=== PATIENT | female | born 1960 | race Caucasian/White ===

== ENCOUNTER → 2016-07-05 | Outpatient (CLI) | payer OTHER ==
[~2016-07-05] MED LIST: CIPR5SUS PO; DICL50TAB FT; DOCU10CA PO; DONETAB6 PO; LISI-542 PO; PERCOCET PO; TYLE325T5 PO; XANA0.5T PO; ZANA4TAB PO
--- NOTE | 2016-07-05 09:49 | REP ---
Clinical: Interstitial cystitis. Technique: Real time hunt scale and color evaluation of the bladder using curved array transducer. Transvaginal ultrasound examination of the urethra. Findings: The bladder is normal. Specifically, there is no wall thickening or mass lesion and bilateral ureteral jets are identified. The urethra is normal in appearance by ultrasound. Prevoid volume equals 113 ml. Postvoid volume equals 8 ml. Postvoid residual equals 7%. Impression: Normal sonographic appearance of the bladder and urethra. Signed by Lambert Loza MD 07/05/2016 09:40 A
== END ==
LOC: M RAD 08:47
PROVIDERS: ATTEND Specialist
DX: N36.8 Other specified disorders of urethra (principal); N30.10 Interstitial cystitis (chronic) without hematuria

== ENCOUNTER 2016-09-03 15:26 | Emergency (ER) | payer OTHER ==
[2016-09-03 15:27] VITALS: BP 157/86
[2016-09-03] MEDS ORDERED: NAME5TAB13 PO (15:38)
[2016-09-03] MEDS ORDERED: MELO15TA4 PO (15:38)
[2016-09-03] MEDS ORDERED: OXYB5TA PO (15:38)
[2016-09-03] MEDS ORDERED: PYRI200T5 PO (15:57)
[2016-09-03] MEDS ORDERED: PHENAZOPYRIDINE 100 MG TAB PO ONE (16:00)
[2016-09-03] MEDS ORDERED: ACETAMINOPHEN 325 MG TAB PO ONE (16:00)
== END 2016-09-03 16:00 | disposition home or self-care (01) ==
LOC: M ED 15:39
DX: N32.9 Bladder disorder, unspecified (principal); I25.10 Atherosclerotic heart disease of native coronary artery without angina pectoris; Z79.899 Other long term (current) drug therapy

== ENCOUNTER → 2016-09-27 | Outpatient (REF) | payer OTHER ==
[~2016-09-27] MED LIST changes: +MELO15TA4 PO; +NAME5TAB13 PO; +OXYB5TA PO; +PYRI200T5 PO
[2016-09-27 13:51] LABS: BACTERIA, URINE SMALL AMOUNT; HYALINE CAST, URINE NONE SEEN /lpf (0-1); MICROSCOPIC EXAM PERFORMED; RBC, URINE 0-1 /hpf (0-3); SQUAMOUS EPITHELIAL CELL URINE SMALL AMOUNT /hpf (SMALL AMT)
== END ==
LOC: M SMT 13:19
PROVIDERS: ATTEND Specialist
DX: R35.0 Frequency of micturition (principal)

== ENCOUNTER → 2016-11-19 | Outpatient (REF) | payer OTHER ==
[~2016-11-19] MED LIST changes: -OXYB5TA PO; +OXYB5TAB10 PO; +PYRI1TAB5 PO; -PYRI200T5 PO
== END ==
LOC: M SMT 13:31
PROVIDERS: ATTEND Nurse Practitioner Women's Health
DX: R30.0 Dysuria (principal)

== ENCOUNTER → 2017-04-20 | Outpatient (CLI) | payer OTHER ==
[2017-04-20 14:16] LABS: ALBUMIN 3.2 GM/DL (3.2-5.2); ALBUMIN/GLOBULIN RATIO 0.89 (1.00-1.93); ALKALINE PHOSPHATASE 94 U/L (45-117); ALT/SGPT 21 U/L (12-78); ANION GAP 6 MEQ/L (8-16); AST/SGOT 9 U/L (7-37); BILIRUBIN,TOTAL 0.3 MG/DL (0.2-1.0); BLOOD UREA NITROGEN 9 MG/DL (7-18); CALCIUM LEVEL 8.6 MG/DL (8.5-10.1); CARBON DIOXIDE LEVEL 32 MEQ/L (21-32); CHLORIDE LEVEL 106 MEQ/L (98-107); CHOLESTEROL LEVEL 188 MG/DL (<200); CREATININE FOR GFR 0.69 MG/DL (0.55-1.02); GLOMERULAR FILTRATION RATE > 60.0 (>51); GLUCOSE, FASTING 89 MG/DL (70-105); POTASSIUM SERUM 4.5 MEQ/L (3.5-5.1); SODIUM LEVEL 144 MEQ/L (136-145); TOTAL PROTEIN 6.8 GM/DL (6.4-8.2); TRIGLYCERIDES LEVEL 92 MG/DL (<150)
== END ==
LOC: M WUC 08:51
PROVIDERS: ATTEND Family Medicine
DX: Z00.01 Encounter for general adult medical examination with abnormal findings (principal)

== ENCOUNTER → 2017-08-12 | Outpatient (REF) | payer OTHER ==
[2017-08-12 14:15] LABS: APPEARANCE, URINE CLEAR (CLEAR); BACTERIA, URINE AUTO NEGATIVE (NEGATIVE); BILIRUBIN, URINE AUTO NEGATIVE (NEGATIVE); BLOOD, URINE BLOOD 1+ (NEGATIVE); COLOR, URINE AMBER (YELLOW); GLUCOSE, URINE (UA) AUTO NEGATIVE (NEGATIVE); KETONE, URINE AUTO NEGATIVE (NEGATIVE); LEUKOCYTE ESTERASE, URINE AUTO NEGATIVE (NEGATIVE); MUCUS, URINE SMALL (NEGATIVE); NITRITE, URINE AUTO NEGATIVE (NEGATIVE); PROTEIN, URINE AUTO NEGATIVE (NEGATIVE); RBC, URINE AUTO 11 /HPF (0-3); SPECIFIC GRAVITY URINE AUTO 1.017 (1.002-1.035); SQUAMOUS EPITHELIAL CELL UR AU 1 /HPF (0-6); UROBILINOGEN, URINE AUTO 0.2 mg/dL (0.0-2.0); WBC, URINE AUTO 3 /HPF (0-3)
== END ==
LOC: M SMT 13:16
DX: R30.0 Dysuria (principal)

== ENCOUNTER → 2017-09-08 | Outpatient (CLI) | payer OTHER ==
[2017-09-08 17:35] LABS: ALBUMIN 3.4 GM/DL (3.2-5.2); ALBUMIN/GLOBULIN RATIO 0.97 (1.00-1.93); ALKALINE PHOSPHATASE 98 U/L (45-117); ALT/SGPT 22 U/L (12-78); ANION GAP 6 MEQ/L (8-16); AST/SGOT 11 U/L (7-37); BILIRUBIN,TOTAL 0.3 MG/DL (0.2-1.0); BLOOD UREA NITROGEN 10 MG/DL (7-18); CALCIUM LEVEL 8.8 MG/DL (8.5-10.1); CARBON DIOXIDE LEVEL 29 MEQ/L (21-32); CHLORIDE LEVEL 105 MEQ/L (98-107); CHOLESTEROL LEVEL 176 MG/DL (<200); CHOLESTEROL RISK RATIO 4.292 (<5); CREATININE FOR GFR 0.76 MG/DL (0.55-1.30); GLOMERULAR FILTRATION RATE > 60.0 (>51); GLUCOSE, FASTING 72 MG/DL (70-100); HDL CHOLESTEROL 41 MG/DL (>40); LDL CHOLESTEROL 118.6 MG/DL (<100); MAGNESIUM LEVEL 2.2 MG/DL (1.8-2.4); NON-HDL-C 135 MG/DL; POTASSIUM SERUM 4.4 MEQ/L (3.5-5.1); SODIUM LEVEL 140 MEQ/L (136-145); TOTAL PROTEIN 6.9 GM/DL (6.4-8.2); TRIGLYCERIDES LEVEL 82 MG/DL (<150)
== END ==
LOC: M WUC 10:39
DX: R25.2 Cramp and spasm (principal); I10 Essential (primary) hypertension
CPT/HCPCS: 83735

== ENCOUNTER → 2017-11-16 | Outpatient (REF) | payer OTHER ==
[2017-11-16 17:48] LABS: APPEARANCE, URINE HAZY (CLEAR); BACTERIA, URINE AUTO 2+ (NEGATIVE); BILIRUBIN, URINE AUTO NEGATIVE (NEGATIVE); BLOOD, URINE BLOOD 1+ (NEGATIVE); COLOR, URINE YELLOW (YELLOW); GLUCOSE, URINE (UA) AUTO NEGATIVE (NEGATIVE); KETONE, URINE AUTO NEGATIVE (NEGATIVE); LEUKOCYTE ESTERASE, URINE AUTO 1+ (NEGATIVE); MUCUS, URINE SMALL (NEGATIVE); NITRITE, URINE AUTO NEGATIVE (NEGATIVE); PROTEIN, URINE AUTO NEGATIVE (NEGATIVE); RBC, URINE AUTO 1 /HPF (0-3); SPECIFIC GRAVITY URINE AUTO 1.015 (1.002-1.035); SQUAMOUS EPITHELIAL CELL UR AU 3 /HPF (0-6); UROBILINOGEN, URINE AUTO 0.2 mg/dL (0.0-2.0); WBC, URINE AUTO 11 /HPF (0-3)
== END ==
LOC: M SMT 16:44
DX: R30.0 Dysuria (principal)
CPT/HCPCS: 81001

== ENCOUNTER → 2017-12-21 | Outpatient (REF) | payer OTHER | LOC: M SFHCCLAY 14:38 | DX: N39.0 Urinary tract infection, site not specified (principal) ==

== ENCOUNTER → 2017-12-22 | Outpatient (REF) | payer OTHER | LOC: M SFHCPLAZ 11:42 | DX: N39.0 Urinary tract infection, site not specified (principal) | CPT/HCPCS: 87086 ==

== ENCOUNTER → 2018-03-21 | Outpatient (CLI) | payer OTHER | LOC: M PLARAD 14:26 | DX: F03.90 Unspecified dementia, unspecified severity, without behavioral disturbance, psychotic disturbance, mood disturbance, and anxiety (principal) | CPT/HCPCS: 78608 ==

== ENCOUNTER → 2018-05-03 | Outpatient (CLI) | payer MEDICAID | LOC: M CLY 14:55 | DX: M25.774 Osteophyte, right foot (principal); M79.604 Pain in right leg; J40 Bronchitis, not specified as acute or chronic ==

== ENCOUNTER → 2018-09-21 | Outpatient (REF) | payer MEDICAID ==
[~2018-09-21] MED LIST changes: +MELO15TA28 PO; -MELO15TA4 PO
== END ==
LOC: M SMT 13:11
PROVIDERS: ATTEND Nurse Practitioner Women's Health
DX: N39.0 Urinary tract infection, site not specified (principal)

== ENCOUNTER 2018-09-28 20:09 | Emergency (ER) | payer MEDICAID ==
[~2018-09-28] VITALS: Ht 157.5 cm; Wt 99.1 kg
[2018-09-28 22:15] VITALS: BP 182/92
--- NOTE | 2018-09-29 08:20 | REP ---
Left tib-fib series: Four views. History: Trauma. Pain. Swelling. Findings: Four views of the left tibia and fibula show no evidence of fracture or subluxation. There is plantar heel spurring. Impression: No acute bony abnormality. Electronically Signed by David Matute MD 09/29/2018 08:11 A
--- NOTE | 2018-09-29 08:40 | REP ---
Left foot series: Four views. History: Pain and swelling after trauma. Findings: There is a moderate hallux valgus. Mild diffuse osteopenia is noted. There is osteoarthritis at the first MTP and first MTT joints. No fracture is seen. Plantar calcaneal spur is noted. Impression: No traumatic bony abnormality. Osteoarthritic changes. Diffuse osteopenia. Hallux valgus. Electronically Signed by David Matute MD 09/29/2018 02:43 P
== END 2018-09-28 22:18 | disposition home or self-care (01) ==
LOC: M ED 20:09
DX: S93.402A Sprain of unspecified ligament of left ankle, initial encounter (principal); W01.0XXA Fall on same level from slipping, tripping and stumbling without subsequent striking against object, initial encounter; Y92.018 Other place in single-family (private) house as the place of occurrence of the external cause; I10 Essential (primary) hypertension; F03.90 Unspecified dementia, unspecified severity, without behavioral disturbance, psychotic disturbance, mood disturbance, and anxiety; Z79.899 Other long term (current) drug therapy

== ENCOUNTER → 2018-10-12 | Outpatient (REF) | payer MEDICAID ==
[2018-10-12 18:24] LABS: APPEARANCE, URINE MANUAL CLEAR (CLEAR); COLOR, URINE MANUAL ORANGE (YELLOW); GLUCOSE, URINE (UA) MANUAL NEGATIVE (NEGATIVE); KETONE, URINE MANUAL OBSCURED mg/dL (NEGATIVE); PROTEIN, URINE MANUAL OBSCURED mg/dL (NEGATIVE)
[2018-10-12 18:25] LABS: BILIRUBIN, URINE MANUAL OBSCURED (NEGATIVE); BLOOD URINE MANUAL OBSCURED (NEGATIVE); LEUKOCYTE ESTERASE, URINE MAN OBSCURED (NEGATIVE); NITRITE, URINE MANUAL OBSCURED (NEGATIVE); UROBILINOGEN, URINE MANUAL OBSCURED mg/dl (NORMAL)
[2018-10-12 18:33] LABS: BACTERIA, URINE SMALL AMOUNT; HYALINE CAST, URINE NONE SEEN /lpf (0-1); SQUAMOUS EPITHELIAL CELL URINE SMALL AMOUNT /hpf (SMALL AMT); WBC, URINE 0-1 /hpf (0-3)
== END ==
LOC: M SMT 17:22
PROVIDERS: ATTEND Nurse Practitioner Women's Health
DX: R30.0 Dysuria (principal)

== ENCOUNTER → 2019-05-01 | Outpatient (REF) | payer MEDICAID, OTHER ==
[2019-05-01 19:21] LABS: APPEARANCE, URINE MANUAL CLOUDY (CLEAR); COLOR, URINE MANUAL AMBER (YELLOW); GLUCOSE, URINE (UA) MANUAL OBSCURED mg/dL (NEGATIVE); PH,URINE MAN OBSCURED UNITS (5.0 - 7.0); PROTEIN, URINE MANUAL OBSCURED mg/dL (NEGATIVE); SPECIFIC GRAVITY,URINE MANUAL 1.017 (1.002-1.035)
[2019-05-01 19:22] LABS: BILIRUBIN, URINE MANUAL OBSCURED (NEGATIVE); BLOOD URINE MANUAL OBSCURED (NEGATIVE); KETONE, URINE MANUAL OBSCURED mg/dL (NEGATIVE); LEUKOCYTE ESTERASE, URINE MAN OBSCURED (NEGATIVE); NITRITE, URINE MANUAL OBSCURED (NEGATIVE); UROBILINOGEN, URINE MANUAL OBSCURED mg/dl (NORMAL)
[2019-05-01 19:43] LABS: WBC, URINE TNTC /hpf (0-3)
[2019-05-01 19:44] LABS: SQUAMOUS EPITHELIAL CELL URINE LARGE AMOUNT /hpf (SMALL AMT); TRANSITIONAL EPI CELLS, URINE SMALL AMOUNT /hpf
[2019-05-01 19:45] LABS: BACTERIA, URINE LARGE AMOUNT; MUCUS, URINE LARGE AMOUNT (NEGATIVE)
[2019-05-01 19:48] LABS: HYALINE CAST, URINE NONE SEEN /lpf (0-1)
== END ==
LOC: M SMT 17:10
PROVIDERS: ATTEND Nurse Practitioner Women's Health
DX: R30.0 Dysuria (principal)

== ENCOUNTER 2019-05-12 09:16 | Inpatient (IN) | payer OTHER ==
[~2019-05-12] VITALS: Ht 149.9 cm; Wt 91.8 kg
[2019-05-12] MEDS ORDERED: LIDOCAINE 2% 5ML JELLY UROJET TOP ONE (09:45)
[2019-05-12 10:01] LABS: BASO # 0.1 10^3/uL (0.0-0.2); BASO % 0.8 % (0.0-1.0); EOS # 0.4 10^3/uL (0.0-0.5); EOS % 6.7 % (0.0-3.0); HEMATOCRIT 45.2 % (36.0-47.0); HEMOGLOBIN 14.3 g/dl (12.0-15.5); LYMPH # 1.6 10^3/uL (1.5-5.0); LYMPH % 24.6 % (24.0-44.0); MEAN CORPUSCULAR HEMOGLOBIN 31.2 pg (27.0-33.0); MEAN CORPUSCULAR HGB CONC 31.6 g/dl (32.0-36.5); MEAN CORPUSCULAR VOLUME 98.7 fl (80.0-96.0); MONO # 0.4 10^3/uL (0.0-0.8); MONO % 6.5 % (0.0-5.0); NEUTROPHILS % 61.1 % (36.0-66.0); PLATELET COUNT, AUTOMATED 240 10^3/uL (150-450); RED BLOOD COUNT 4.58 10^6/uL (4.00-5.40); WHITE BLOOD COUNT 6.5 10^3/uL (4.0-10.0)
[2019-05-12] MEDS ORDERED: MAGN250T7 PO (10:09)
[2019-05-12] MEDS ORDERED: PENT10CA PO (10:09)
[2019-05-12] MEDS ORDERED: CITA10TA6 PO (10:09)
[2019-05-12] MEDS ORDERED: CYCL10TA PO (10:09)
[2019-05-12] MEDS ORDERED: QUET1TAB7 PO (10:09)
[2019-05-12 11:27] LABS: BLOOD UREA NITROGEN 17 MG/DL (7-18); CALCIUM LEVEL 8.6 MG/DL (8.8-10.2); CARBON DIOXIDE LEVEL 28 MEQ/L (21-32); CHLORIDE LEVEL 105 MEQ/L (98-107); CREATININE FOR GFR 0.89 MG/DL (0.55-1.30); GLOMERULAR FILTRATION RATE > 60.0 (>45); GLUCOSE, FASTING 99 MG/DL (70-100); POTASSIUM SERUM 5.1 MEQ/L (3.5-5.1); SODIUM LEVEL 139 MEQ/L (136-145)
--- NOTE | 2019-05-12 11:44 | REP ---
REASON: Altered mental status. The technique utilized in obtaining the radiograph has magnified the cardiac silhouette and accentuated the interstitial markings. FINDINGS: The superior mediastinal structures are midline. The cardiac silhouette is unremarkable in size, shape, and position. The diaphragmatic surfaces of the lungs are regular, and the costophrenic angles are clear. The pulmonary olmos are clear. The imaged osseous structures are intact. IMPRESSION: There is no acute cardiopulmonary disease. Electronically Signed by Carlos A Huntley DO 05/12/2019 12:16 P
[2019-05-12] MEDS ORDERED: ONDANSETRON 4MG/2ML VIAL (J2405) As Ordered ONE (12:00)
[2019-05-12] MEDS ORDERED: MORPHINE 2 MG/ML 1ML VIAL (J2270) As Ordered ONE (12:00)
[2019-05-12] MEDS ORDERED: ONDANSETRON 4MG/2ML VIAL (J2405) IV STA (12:01)
[2019-05-12] MEDS ORDERED: MORPHINE 2 MG/ML 1ML VIAL (J2270) IV STA (12:01)
--- NOTE | 2019-05-12 12:21 | ECGEPIP ---
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
[2019-05-12] MEDS ORDERED: MORPHINE 4 MG/ML 1ML VIAL/SYRINGE (J2270) IV PRN (12:30)
[2019-05-12] MEDS ORDERED: CYAN100050 PO (12:39)
[2019-05-12] MEDS ORDERED: SULF1TAB93 PO (12:39)
--- NOTE | 2019-05-12 12:53 | REP ---
REASON: Pain after trauma. COMPARISON: 05/03/2018. There is an acute distal fibular fracture with soft tissue swelling. There are chronic changes seen involving the angle which are unchanged from 05/03/2018. There is lateral soft tissue swelling. IMPRESSION:Distal fibular fracture and chronic changes. Electronically Signed by Carlos A Huntley DO 05/12/2019 01:24 P
--- NOTE | 2019-05-12 13:06 | REP ---
REASON: Status-post casting right ankle due to distal fibular fracture. The previously described fracture is obscured by overlying casting material. As best as can be determined by this exam. The alignment appears near anatomical. Electronically Signed by Carlos A Huntley DO 05/12/2019 01:25 P
--- NOTE | 2019-05-12 13:29 | HPEPDOC ---
[facility] Medical History & Physical Date of Admission May 12, 2019 Date of Service: May 12, 2019 Attending Physician: MORRO PURVIS MD History and Physical CHIEF COMPLAINT: unwitnessed fall at home HISTORY OF PRESENT ILLNESS: This is a 58-year-old female with history of early onset dementia and behavioral disturbance who presents after unwitnessed fall at home. History is obtained from ED staff and medical record, as patient does not answer questions appropriately secondary to her dementia. Reportedly, she was found by her significant other after an unknown time of being down. She had urinated on herself, but the patient is known to be incontinent of urine due to her interstitial cystitis. The patient has not been ill recently, and not had sick contacts. She has not complained of any fevers, chills or weight loss recently. She does have chronic dysuria for which she sees urology. Otherwise the patient has no other acute medical issues. In the ED, she underwent ankle x- ray was found to have a fracture of her distal fibula. She was seen by orthopedic surgery who placed a cast on her right lower extremity. Reportedly, her significant other is seeking placement for higher level of care for the patient. She is admitted for coordination of placement at this time. PAST MEDICAL HISTORY: Early-onset dementia with behavioral disturbance Interstitial cystitis, sees Urology Hypertension. Chronic back pain. Memory loss. Possible vit d deficiency. History of Right ankle fx PAST SURGICAL HISTORY: Cystoscopy Colonoscopy SOCIAL HISTORY: Former smoker, quit 15 years ago, smoked for more than 10 years. Lives at home with significant other. Occasional alcohol. FAMILY HISTORY: Noncontributory ALLERGIES: Please see below. REVIEW OF SYSTEMS: Unable to obtain review of systems as patient does not answer questions appropriately secondary to dementia HOME MEDICATIONS: Please see below. PHYSICAL EXAMINATION: VITAL SIGNS: Please see below. GENERAL APPEARANCE: Laying in bed, appears stated age, no acute distress, calm, cooperative, pleasantly demented HEENT: EOMI, PERRLA, neck is supple with no thyromegaly or lymphadenopathy RESPIRATORY: Lungs are clear to auscultation bilaterally with no adventitious breath sounds appreciated CARDIOVASCULAR: no JVD, RRR,no murmurs/rubs/gallops ABDOMEN: Soft, nontender to palpation in all four quadrants, no masses/organomegaly EXTREMITIES: Right ankle swollen NEUROLOGICAL: No obvious focal deficits, unable to do full exam secondary to pain PSYCHIATRIC: Not oriented to person, place or time. Does not answer questions appropriately Skin: No rashes or ulcers. LN: No significant cervical or inguinal lymphadenopathy LABORATORY DATA: See below. IMAGING: CXR: FINDINGS: The superior mediastinal structures are midline. The cardiac silhouette is unremarkable in size, shape, and position. The diaphragmatic surfaces of the lungs are regular, and the costophrenic angles are clear. The pulmonary olmos are clear. The imaged osseous structures are intact. IMPRESSION: There is no acute cardiopulmonary disease. ANKLE XR: There is an acute distal fibular fracture with soft tissue swelling. There are chronic changes seen involving the angle which are unchanged from 05/03/2018. There is lateral soft tissue swelling. MICROBIOLOGY: Please see below. ASSESSMENT: This is a 58 YO F with history of early-onset dementia who presents after unwitnessed fall at home found to have distal fibular fracture. She has been seen by orthopaedic surgery in ED, who has placed a cast. She is admitted as home disposition unsafe at this time. PLAN: 1. Fibular fracture: -Orthopaedics to follow. Appreciate recommendations -Patient has had cast placed in ED. -Morphine for pain management 2. Advanced dementia: -Social service consult in place -Per ED staff, family is actively seeking placement. Appreciate assistance with this -1:1 sitter ordered 3. Interstitial cystitis: -Continue home medication DISPO: pending placement Vital Signs Vital Signs Date Time Temp Pulse Resp B/P (MAP) Pulse Ox O2 Delivery O2 Flow Rate FiO2 05/12/19 12:09 16 05/12/19 09:35 97.7 85 176/81 (112) 100 Room Air Laboratory Data Labs 24H Laboratory Tests 2 05/12/19 09:40: Immature Granulocyte % (Auto) 0.3, Neutrophils (%) (Auto) 61.1, Lymphocytes (%) (Auto) 24.6, Monocytes (%) (Auto) 6.5H, Eosinophils (%) (Auto) 6.7H, Basophils (%) (Auto) 0.8, Neutrophils # (Auto) 4.0, Lymphocytes # (Auto) 1.6, Monocytes # (Auto) 0.4, Eosinophils # (Auto) 0.4, Basophils # (Auto) 0.1, Nucleated Red Blood Cells % (auto) 0.0, Urine Color YELLOW, Urine Appearance HAZY, Urine pH 6.0, Urine Specific [place] 1.017, Urine Protein NEGATIVE, Urine Glucose (UA) NEGATIVE, Urine Ketones NEGATIVE, Urine Blood NEGATIVE, Urine Nitrite NEGATIVE, Urine Bilirubin NEGATIVE, Urine Urobilinogen 0.2, Urine Leukocyte Esterase NEGATIVE, Urine WBC (Auto) 3, Urine RBC (Auto) 4H, Urine Hyaline Casts (Auto) 0, Urine Bacteria (Auto) NEGATIVE, Urine Squamous Epithelial Cells 6, Urine Mucus (Auto) SMALL, Urine Sperm (Auto) 05/12/19 10:45: Anion Gap 6L, Glomerular Filtration Rate > 60.0, Calcium Level 8.6L CBC/BMP Laboratory Tests 05/12/19 09:40 05/12/19 10:45 Home Medications Scheduled Citalopram Hydrobromide (Citalopram HBr) 10 Mg Tablet, 10 MG PO DAILY Cyanocobalamin (Vitamin B-12) (Vitamin B-12) 1,000 Mcg Tablet, 1,000 MCG PO DAILY Cyclobenzaprine HCl (Cyclobenzaprine HCl) 10 Mg Tablet, 10 MG PO QHS Magnesium Oxide (Magnesium) 250 Mg Tablet, 250 MG PO BID Pentosan Polysulfate Sodium (Elmiron) 100 Mg Capsule, 100 MG PO TID Sulfamethoxazole/Trimethoprim (Sulfamethoxazole-Tmp Ds Tablet) 1 Each Tablet, 1 TAB PO BID Allergies Coded Allergies: No Known Allergies (Unverified , 07/20/14) A-FIB/CHADSVASC A-FIB History Current/History of A-Fib/PAF?: No Current PO Anticoag Therapy: No GME ATTESTATION GME ATTESTATION My faculty preceptor for this patient encounter was physically present during the encounter and was fully available. All aspects of the patient interview, examination, medical decision making process, and medical care plan development were reviewed and approved by the faculty preceptor. The faculty preceptor is a segura and concurs with the plan as stated in the body of this note and will attest to such by his/her cosignature. GME ATTESTATION GME ATTESTATION My faculty preceptor for this patient encounter was physically present during the encounter and was fully available. All aspects of the patient interview, examination, medical decision making process, and medical care plan development were reviewed and approved by the faculty preceptor. The faculty preceptor is aware and concurs with the plan as stated in the body of this note and will attest to such by his/her cosignature. ATTENDING NOTE Patient was seen and examined by me this morning with the residents. Agree with the above assessment and plan CONCEPCION CHICAS MD May 12, 2019 12:34 MORRO PURVIS MD May 12, 2019 15:48
[2019-05-12 14:00] VITALS: BP 142/85
[2019-05-12] MEDS: NS 1,000 ML IV SCH (14:21)
[2019-05-12 18:00] VITALS: BP 138/82
[2019-05-12 19:59] VITALS: BP 154/122
[2019-05-12 20:00] VITALS: BP 158/84
[2019-05-12] MEDS: CYCLOBENZAPRINE 10 MG TAB PO SCH (21:10)
[2019-05-12] MEDS: HEPARIN SOD (PORCINE) 5000 UNITS/ML VIAL SC SCH (21:10)
[2019-05-12] MEDS: ACETAMINOPHEN TAB 650MG DOSE (2X325MG) PO PRN (21:11)
[2019-05-13] MEDS: NS 1,000 ML IV SCH (02:24)
[2019-05-13 05:52] LABS: HEMATOCRIT 37.6 % (36.0-47.0); MEAN CORPUSCULAR HEMOGLOBIN 31.3 pg (27.0-33.0); MEAN CORPUSCULAR HGB CONC 32.2 g/dl (32.0-36.5); MEAN CORPUSCULAR VOLUME 97.4 fl (80.0-96.0); PLATELET COUNT, AUTOMATED 213 10^3/uL (150-450); RED BLOOD COUNT 3.86 10^6/uL (4.00-5.40); WHITE BLOOD COUNT 6.4 10^3/uL (4.0-10.0)
[2019-05-13 05:59] LABS: HEMOGLOBIN 12.1 g/dl (12.0-15.5)
[2019-05-13 06:20] LABS: BLOOD UREA NITROGEN 12 MG/DL (7-18); CALCIUM LEVEL 8.2 MG/DL (8.8-10.2); CARBON DIOXIDE LEVEL 26 MEQ/L (21-32); CHLORIDE LEVEL 109 MEQ/L (98-107); CREATININE FOR GFR 0.75 MG/DL (0.55-1.30); GLOMERULAR FILTRATION RATE > 60.0 (>45); GLUCOSE, FASTING 98 MG/DL (70-100); SODIUM LEVEL 141 MEQ/L (136-145)
[2019-05-13 06:26] VITALS: BP 115/70
--- NOTE | 2019-05-13 07:56 | IPNPDOC ---
Text Note Date of Service The patient was seen on 05/13/19. NOTE Patient was seen and examined this morning. Denies any overnight events. PHYSICAL EXAMINATION: GENERAL APPEARANCE: Laying in bed, appears stated age, no acute distress, calm, cooperative, pleasantly demented HEENT: EOMI, PERRLA, neck is supple with no thyromegaly or lymphadenopathy RESPIRATORY: Lungs are clear to auscultation bilaterally with no adventitious breath sounds appreciated CARDIOVASCULAR: no JVD, RRR,no murmurs/rubs/gallops ABDOMEN: Soft, nontender to palpation in all four quadrants, no masses/organomegaly EXTREMITIES: Cast on the right lower extremity NEUROLOGICAL: No obvious focal deficits, unable to do full exam secondary to pain PSYCHIATRIC: Not oriented to person, place or time. Does not answer questions appropriately Skin: No rashes or ulcers. LN: No significant cervical or inguinal lymphadenopathy LABORATORY DATA: See below. ANKLE XR: There is an acute distal fibular fracture with soft tissue swelling. There are chronic changes seen involving the angle which are unchanged from 05/03/2018. There is lateral soft tissue swelling. Assessment and plan This is a 58 YO F with history of early-onset dementia who presents after unwitnessed fall at home , Likely mechanical, as she is having caused dementia found to have distal fibular fracture. She has been seen by orthopaedic surgery in ED, who has placed a cast. She is admitted as home disposition unsafe at this time. 1. Fibular fracture: Orthopaedics to follow. Appreciate recommendations. Patient has had cast placed in ED. Morphine for pain management. Will get vitamin D levels and replace accordingly 2. Advanced dementia: Social service consult in place, family is actively see [facility]. 1:1 sitter as she is high risk of falls 3. 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
[2019-05-13] MEDS: HEPARIN SOD (PORCINE) 5000 UNITS/ML VIAL SC SCH ×2 (08:01→20:16)
[2019-05-13] MEDS: CitaloPRAM (CeleXA) 10 MG TABLET PO SCH (08:01)
[2019-05-13] MEDS: ACETAMINOPHEN TAB 650MG DOSE (2X325MG) PO PRN ×2 (08:01→20:16)
[2019-05-13] MEDS ORDERED: FLUBLOK(EGG FREE)(QUAD)INFLUENZA VACC 0.5ML SYRINGE (90682)18YRS&OLDER IM ONE (09:00)
[2019-05-13 09:20] VITALS: BP 115/70
[2019-05-13 14:00] VITALS: BP 119/76
[2019-05-13 19:58] VITALS: BP 131/74
[2019-05-13] MEDS: CYCLOBENZAPRINE 10 MG TAB PO SCH (20:16)
--- NOTE | 2019-05-13 22:55 | CR ---
DATE OF CONSULTATION: 05/12/2019 CHIEF COMPLAINT: Right ankle pain. The patient presented to the emergency room (ER) after being picked up by the ambulance at home, said she had an unwitnessed fall. Due to the patient's significant past medical history of early onset dementia and behavioral disturbance, we are not able to get a complete detailed history of present illness. The patient reports pain, was unsure how it happened, sharp in nature and at times is made worse with movement and alleviated with rest and pain medication. Denying any other complaints of fevers, chills, nausea or vomiting. PAST MEDICAL HISTORY: 1. Early onset dementia. 2. Interstitial cystitis. 3. Hypertension. 4. Chronic back pain. 5. Memory loss. 6. Vitamin D deficiency. PAST SURGICAL HISTORY: Cystoscopy and colonoscopy. SOCIAL HISTORY: Former smoker, quit 15 years ago. Smoked for 10 years. Lives at home with significant other. ALLERGIES: No known drug allergies. HOME MEDICATIONS: - citalopram - cyclobenzaprine. - magnesium oxide - pentosan - sulfamethoxazole trimethoprim REVIEW OF SYSTEMS: Unable to obtain review of systems due to the patient's mentation. PHYSICAL EXAMINATION: The patient is awake and alert, not oriented, lying in bed comfortably, breathing unlabored on room air. Normocephalic, atraumatic. Bilateral upper extremities: No tenderness to palpation. Full active range of motion of the fingers, wrist and elbow without any pain or discomfort. Skin intact. Radial pulses 2+, regular rate. Moving fingers spontaneously. I am unable to get a detailed motor sensory exam. Bilateral lower extremities: Tenderness to palpation of the right ankle. Significant swelling, otherwise skin is intact. Posterior tibial pulses 2+, regular rate. Wiggles toes. Unable to get a detailed motor sensory exam. IMAGING: X-rays of the right ankle demonstrate a distal fibular medial malleolus fracture, displaced. DIAGNOSIS: 58-year-old female with significant comorbidities including early onset dementia that suffered an unstable right ankle fracture. I discussed with significant others that this fracture is typically unstable. However, given her overall medical comorbidities, it is quite prudent that we attempt nonoperative treatment here. The patient underwent a closed reduction and casting in the emergency room (ER) with repeat films that showed improved alignment. Will make her non-weightbearing with that lower extremity and to elevate for pain control and that she can followup in our office in one week for repeat films. The patient expressed understanding and agreement with that plan. Appreciate medicine management of the patient.
[2019-05-14 06:17] LABS: HEMATOCRIT 37.2 % (36.0-47.0); HEMOGLOBIN 12.1 g/dl (12.0-15.5); MEAN CORPUSCULAR HEMOGLOBIN 31.5 pg (27.0-33.0); MEAN CORPUSCULAR HGB CONC 32.5 g/dl (32.0-36.5); MEAN CORPUSCULAR VOLUME 96.9 fl (80.0-96.0); PLATELET COUNT, AUTOMATED 208 10^3/uL (150-450); RED BLOOD COUNT 3.84 10^6/uL (4.00-5.40); WHITE BLOOD COUNT 5.9 10^3/uL (4.0-10.0)
[2019-05-14 06:22] VITALS: BP 128/72
[2019-05-14 06:45] LABS: BLOOD UREA NITROGEN 8 MG/DL (7-18); CALCIUM LEVEL 8.5 MG/DL (8.8-10.2); CARBON DIOXIDE LEVEL 26 MEQ/L (21-32); CHLORIDE LEVEL 109 MEQ/L (98-107); CREATININE FOR GFR 0.62 MG/DL (0.55-1.30); GLOMERULAR FILTRATION RATE > 60.0 (>45); GLUCOSE, FASTING 94 MG/DL (70-100); POTASSIUM SERUM 3.8 MEQ/L (3.5-5.1); SODIUM LEVEL 142 MEQ/L (136-145)
[2019-05-14] MEDS: HEPARIN SOD (PORCINE) 5000 UNITS/ML VIAL SC SCH ×2 (08:53→20:51)
[2019-05-14] MEDS: CitaloPRAM (CeleXA) 10 MG TABLET PO SCH (08:53)
[2019-05-14] MEDS: PENTOSAN POLYSULFATE SODIUM 100 MG CAP (ELMIRON) PO SCH ×3 (09:00→20:51)
[2019-05-14 09:25] LABS: TOTAL 25(OH) VITAMIN D 20.1 NG/ML (30.0-100.0)
--- NOTE | 2019-05-14 11:03 | IPNPDOC ---
Date Seen The patient was seen on 05/14/19. Progress Note SUBJECTIVE: Patient was seen and examined this morning. No issues or changes overnight. Patient has no complaints this morning. OBJECTIVE: PHYSICAL EXAMINATION: GENERAL APPEARANCE: Laying in bed, appears stated age, no acute distress, calm, cooperative, pleasantly demented HEENT: EOMI, PERRLA, neck is supple with no thyromegaly or lymphadenopathy RESPIRATORY: Lungs are clear to auscultation bilaterally with no adventitious breath sounds appreciated CARDIOVASCULAR: no JVD, RRR,no murmurs/rubs/gallops ABDOMEN: Soft, nontender to palpation in all four quadrants, no masses/organomegaly EXTREMITIES: Cast on the right lower extremity with exposed toes normal in color and patient is able to move them NEUROLOGICAL: No obvious focal deficits, unable to do full exam secondary to pain PSYCHIATRIC: Not oriented to person, place or time. Does not answer questions appropriately Skin: No rashes or ulcers. LN: No significant cervical or inguinal lymphadenopathy LABORATORY DATA: See below. ANKLE XR: There is an acute distal fibular fracture with soft tissue swelling. There are chronic changes seen involving the angle which are unchanged from 05/03/2018. There is lateral soft tissue swelling. Assessment and plan This is a 58 YO F with history of early-onset dementia who presents after unwitnessed fall at home , Likely mechanical, as she is having caused dementia found to have distal fibular fracture. She has been seen by orthopaedic surgery in ED, who has placed a cast. She is admitted as home disposition unsafe at this time. 1. Fibular fracture: Orthopaedics following. Appreciate recommendations. Patient has had cast placed in ED. Morphine for pain management. 2. Advanced dementia: Social service consult in place, family is actively seeking placement. 1:1 sitter as she is high risk of falls 3. 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, on board VS, I&O, 24HKel Vital Signs/I&O Vital Signs Date Time Temp Pulse Resp B/P (MAP) Pulse Ox O2 Delivery O2 Flow Rate FiO2 05/14/19 06:22 98.0 62 16 128/72 (90) 96 Room Air I&O- Last 24 Hours up to 6 AM 05/14/19 06:00 Intake Total 1250 ml Output Total 0 ml Balance 1250 ml Laboratory Data 24H LABS Laboratory Tests 2 05/14/19 05:56: Nucleated Red Blood Cells % (auto) 0.0, Anion Gap 7L, Glomerular Filtration Rate > 60.0, Calcium Level 8.5L CBC/BMP Laboratory Tests 05/14/19 05:56 GME ATTESTATION GME ATTESTATION My faculty preceptor for this patient encounter was physically present during the encounter and was fully available. All aspects of the patient interview, examination, medical decision making process, and medical care plan development were reviewed and approved by the faculty preceptor. The faculty preceptor is aware and concurs with the plan as stated in the body of this note and will attest to such by his/her cosignature. ATTENDING NOTE I have personally evaluated and examined the patient. Discussed with residents/student regarding plan of care and agree with the above assessment and plan. Patient's inquired about mobility and wants to see if patient can be pushed around in wheelchair or work with PT to be out of bed more. CONCEPCION CHICAS MD May 14, 2019 11:03 SERGEY HAIR MD May 14, 2019 16:43
[2019-05-14] MEDS: VITAMIN D 1,000 INTERNATIONAL UNITS TABLET PO SCH (11:51)
[2019-05-14 13:43] VITALS: BP 131/75
[2019-05-14 20:20] VITALS: BP 154/65
[2019-05-14] MEDS: CYCLOBENZAPRINE 10 MG TAB PO SCH (20:51)
[2019-05-14] MEDS: ACETAMINOPHEN TAB 650MG DOSE (2X325MG) PO PRN (23:44)
[2019-05-15 01:00] VITALS: BP 158/87
[2019-05-15 05:20] VITALS: BP 148/81
[2019-05-15] MEDS: ACETAMINOPHEN TAB 650MG DOSE (2X325MG) PO PRN ×2 (06:55→20:09)
[2019-05-15 07:01] LABS: HEMATOCRIT 37.6 % (36.0-47.0); HEMOGLOBIN 12.3 g/dl (12.0-15.5); MEAN CORPUSCULAR HEMOGLOBIN 31.6 pg (27.0-33.0); MEAN CORPUSCULAR HGB CONC 32.7 g/dl (32.0-36.5); MEAN CORPUSCULAR VOLUME 96.7 fl (80.0-96.0); PLATELET COUNT, AUTOMATED 224 10^3/uL (150-450); RED BLOOD COUNT 3.89 10^6/uL (4.00-5.40); WHITE BLOOD COUNT 5.4 10^3/uL (4.0-10.0)
[2019-05-15] MEDS: VITAMIN D 1,000 INTERNATIONAL UNITS TABLET PO SCH (09:27)
[2019-05-15] MEDS: PENTOSAN POLYSULFATE SODIUM 100 MG CAP (ELMIRON) PO SCH ×3 (09:27→20:08)
[2019-05-15] MEDS: CitaloPRAM (CeleXA) 10 MG TABLET PO SCH (09:27)
[2019-05-15] MEDS: HEPARIN SOD (PORCINE) 5000 UNITS/ML VIAL SC SCH ×2 (09:28→20:09)
--- NOTE | 2019-05-15 10:03 | IPNPDOC ---
Date Seen The patient was seen on 05/15/19. Progress Note SUBJECTIVE: Patient was seen and examined this morning. No issues or changes overnight. Patient has no complaints this morning. OBJECTIVE: PHYSICAL EXAMINATION: GENERAL APPEARANCE: Laying in bed, appears stated age, no acute distress, calm, cooperative, pleasantly demented HEENT: EOMI, PERRLA, neck is supple with no thyromegaly or lymphadenopathy RESPIRATORY: Lungs are clear to auscultation bilaterally with no adventitious breath sounds appreciated CARDIOVASCULAR: no JVD, RRR,no murmurs/rubs/gallops ABDOMEN: Soft, nontender to palpation in all four quadrants, no masses/organomegaly EXTREMITIES: Cast on the right lower extremity with exposed toes normal in color and patient is able to move them NEUROLOGICAL: No obvious focal deficits, unable to do full exam secondary to dementia. PSYCHIATRIC: Not oriented to person, place or time. Does not answer questions appropriately Skin: No rashes or ulcers. LN: No significant cervical or inguinal lymphadenopathy LABORATORY DATA: See below. ANKLE XR: There is an acute distal fibular fracture with soft tissue swelling. There are chronic changes seen involving the angle which are unchanged from 05/03/2018. There is lateral soft tissue swelling. Assessment and plan This is a 58 YO F with history of early-onset dementia who presents after unwitnessed fall at home, likely mechanical, found to have distal fibular fracture. She has been seen by orthopaedic surgery in ED who has placed a cast. She is admitted for her family to pursue placement options as home disposition unsafe at this time. 1. Fibular fracture: Orthopaedics following. Appreciate recommendations. Patient has had cast placed in ED. Morphine for pain management. 2. Advanced dementia: Social service consult in place, family is actively seeking placement. 1:1 sitter as she is high risk of falls 3. 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 All aspects of the patient interview, examination, medical decision making process, and medical care plan development were reviewed and approved by the faculty preceptor. The faculty preceptor is aware and concurs with the plan as stated in the body of this note and will attest to such by his/her cosignature. ATTENDING NOTE I have personally evaluated and examined the patient. Discussed with resident/student regarding plan of care and agree with the above assessment and plan. CONCEPCION CHICAS MD May 15, 2019 10:03 SERGEY HAIR MD May 15, 2019 14:23
[2019-05-15 14:57] VITALS: BP 148/75
[2019-05-15] MEDS: CYCLOBENZAPRINE 10 MG TAB PO SCH (20:08)
[2019-05-15 22:00] VITALS: BP 139/66
[2019-05-16 02:00] VITALS: BP 141/66
[2019-05-16] MEDS: ACETAMINOPHEN TAB 650MG DOSE (2X325MG) PO PRN (02:22)
[2019-05-16 06:00] VITALS: BP 140/66
[2019-05-16] MEDS: PENTOSAN POLYSULFATE SODIUM 100 MG CAP (ELMIRON) PO SCH ×3 (09:24→21:22)
[2019-05-16] MEDS: HEPARIN SOD (PORCINE) 5000 UNITS/ML VIAL SC SCH ×2 (09:24→21:22)
[2019-05-16] MEDS: CitaloPRAM (CeleXA) 10 MG TABLET PO SCH (09:24)
[2019-05-16] MEDS: VITAMIN D 1,000 INTERNATIONAL UNITS TABLET PO SCH (09:24)
--- NOTE | 2019-05-16 09:40 | IPNPDOC ---
Date Seen The patient was seen on 05/16/19. Progress Note SUBJECTIVE: No issues or changes overnight. Patient is awaiting placement at this time. OBJECTIVE: PHYSICAL EXAMINATION: GENERAL APPEARANCE: Laying in bed, appears stated age, no acute distress, calm, cooperative, pleasantly demented HEENT: EOMI, PERRLA, neck is supple with no thyromegaly or lymphadenopathy RESPIRATORY: Lungs are clear to auscultation bilaterally with no adventitious breath sounds appreciated CARDIOVASCULAR: no JVD, RRR,no murmurs/rubs/gallops ABDOMEN: Soft, nontender to palpation in all four quadrants, no m asses/organomegaly EXTREMITIES: Cast on the right lower extremity with exposed toes normal in color and patient is able to move them NEUROLOGICAL: No obvious focal deficits, unable to do full exam secondary to dementia. PSYCHIATRIC: Not oriented to person, place or time. Does not answer questions appropriately Skin: No rashes or ulcers. LN: No significant cervical or inguinal lymphadenopathy LABORATORY DATA: See below. ANKLE XR: There is an acute distal fibular fracture with soft tissue swelling. There are chronic changes seen involving the angle which are unchanged from 05/03/2018. There is lateral soft tissue swelling. Assessment and plan This is a 58 YO F with history of early-onset dementia who presents after unwitnessed fall at home, likely mechanical, found to have distal fibular fracture. She has been seen by orthopaedic surgery in ED who has placed a cast. She is admitted for her family to pursue placement options as home disposition unsafe at this time. 1. Fibular fracture: Orthopaedics following. Appreciate recommendations. Patient has had cast placed in ED. Morphine for pain management. 2. Advanced dementia: Social service consult in place, family is actively seeking placement. 1:1 sitter as she is high risk of falls 3. 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 placement framing machine tender and social workers, on board VS, I&O, 24H, Kel Vital Signs/I&O Vital Signs Date Time Temp Pulse Resp B/P (MAP) Pulse Ox O2 Delivery O2 Flow Rate FiO2 05/16/19 06:00 98.0 87 20 140/66 (90) 95 Room Air I&O- Last 24 Hours up to 6 AM 05/16/19 06:00 Intake Total 1520 ml Balance 1520 ml GME ATTESTATION GME ATTESTATION My faculty preceptor for this patient encounter was physically present during the encounter and was fully available. All aspects of the patient interview, examination, medical decision making process, and medical care plan development were reviewed and approved by the faculty preceptor. The faculty preceptor is aware and concurs with the plan as stated in the body of this note and will attest to such by his/her cosignature. ATTENDING NOTE I have personally evaluated and examined the patient. Discussed with resident/student regarding plan of care and agree with the above assessment and plan. CONCEPCION CHICAS MD May 16, 2019 09:40 SERGEY HAIR MD May 16, 2019 10:40
[2019-05-16 14:00] VITALS: BP 149/90
[2019-05-16 18:00] VITALS: BP 139/87
[2019-05-16] MEDS: CYCLOBENZAPRINE 10 MG TAB PO SCH (21:22)
[2019-05-16 21:43] VITALS: BP 128/78
[2019-05-17 05:39] VITALS: BP 152/80
[2019-05-17] MEDS: PENTOSAN POLYSULFATE SODIUM 100 MG CAP (ELMIRON) PO SCH ×3 (08:40→19:58)
[2019-05-17] MEDS: HEPARIN SOD (PORCINE) 5000 UNITS/ML VIAL SC SCH ×2 (08:40→19:58)
[2019-05-17] MEDS: CitaloPRAM (CeleXA) 10 MG TABLET PO SCH (08:40)
[2019-05-17] MEDS: ACETAMINOPHEN TAB 650MG DOSE (2X325MG) PO PRN ×2 (08:41→19:59)
[2019-05-17] MEDS: VITAMIN D 1,000 INTERNATIONAL UNITS TABLET PO SCH (08:41)
--- NOTE | 2019-05-17 10:28 | IPNPDOC ---
Date Seen The patient was seen on 05/17/19. Progress Note SUBJECTIVE: Patient is seen and examined at the bedside this morning while she is eating her breakfast. She has no complaints, although she mostly does not answer questions appropriately. No issues or changes overnight. Patient is awaiting placement at this time. OBJECTIVE: PHYSICAL EXAMINATION: GENERAL APPEARANCE: Laying in bed, appears stated age, no acute distress, calm, cooperative, pleasantly demented HEENT: EOMI, PERRLA, neck is supple with no thyromegaly or lymphadenopathy RESPIRATORY: Lungs are clear to auscultation bilaterally with no adventitious breath sounds appreciated CARDIOVASCULAR: no JVD, RRR,no murmurs/rubs/gallops ABDOMEN: Soft, nontender to palpation in all four quadrants, no masses/organomegaly EXTREMITIES: Cast on the right lower extremity with exposed toes normal in color and patient is able to move them, she does somewhat wince in pain when ankle is pressed NEUROLOGICAL: No obvious focal deficits, unable to do full exam secondary to dementia. PSYCHIATRIC: Not oriented to person, place or time. Does not answer questions appropriately Skin: No rashes or ulcers. LN: No significant cervical or inguinal lymphadenopathy LABORATORY DATA: See below. ANKLE XR: There is an acute distal fibular fracture with soft tissue swelling. There are chronic changes seen involving the angle which are unchanged from 05/03/2018. There is lateral soft tissue swelling. Assessment and plan This is a 58 YO F with history of early-onset dementia who presents after unwitnessed fall at home, likely mechanical, found to have distal fibular fracture. She has been seen by orthopaedic surgery in ED who has placed a cast. She is admitted for her family to pursue placement options as home disposition unsafe at this time. 1. Fibular fracture: Patient has had cast placed in ED. Morphine for pain management, although she has not requested any. She has been getting Tylenol and Flexeril. -Continue PT/OT. Recommend continued rehab after d/c 2. Advanced dementia: Social service consult in place, family is actively seeking placement. Fall precautions 3. 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 placement fur examiner and social workers, on board VS, I&O, 24H, Fishbone Vital Signs/I&O Vital Signs Date Time Temp Pulse Resp B/P (MAP) Pulse Ox O2 Delivery O2 Flow Rate FiO2 05/17/19 05:39 97.6 90 20 152/80 (798) 97 Room Air I&O- Last 24 Hours up to 6 AM 05/17/19 06:00 Intake Total 1920 ml Output Total 1800 ml Balance 120 ml GME ATTESTATION GME ATTESTATION My faculty preceptor for this patient encounter was physically present during the encounter and was fully available. All aspects of the patient interview, examination, medical decision making process, and medical care plan development were reviewed and approved by the faculty preceptor. The faculty preceptor is aware and concurs with the plan as stated in the body of this note and will attest to such by his/her cosignature. ATTENDING NOTE I have personally evaluated and examined the patient. Discussed with resident/student regarding plan of care and agree with the above assessment and plan. CONCEPCION CHICAS MD May 17, 2019 10:28 SERGEY HAIR MD May 17, 2019 10:50
[2019-05-17 14:14] VITALS: BP 153/87
[2019-05-17] MEDS: CYCLOBENZAPRINE 10 MG TAB PO SCH (19:58)
[2019-05-17 20:00] VITALS: BP 155/87
[2019-05-18 06:30] VITALS: BP 154/80
[2019-05-18] MEDS: VITAMIN D 1,000 INTERNATIONAL UNITS TABLET PO SCH (08:03)
[2019-05-18] MEDS: CitaloPRAM (CeleXA) 10 MG TABLET PO SCH (08:03)
[2019-05-18] MEDS: HEPARIN SOD (PORCINE) 5000 UNITS/ML VIAL SC SCH ×2 (08:03→20:25)
[2019-05-18] MEDS: PENTOSAN POLYSULFATE SODIUM 100 MG CAP (ELMIRON) PO SCH ×3 (08:03→20:25)
--- NOTE | 2019-05-18 10:32 | IPNPDOC ---
Date Seen The patient was seen on 05/18/19. Progress Note SUBJECTIVE: Patient is seen and examined at the bedside this morning. She has no complaints, although she mostly does not answer questions appropriately. No issues or changes overnight. Patient is awaiting placement at this time. She has been hypertensive since she has been here. OBJECTIVE: PHYSICAL EXAMINATION: GENERAL APPEARANCE: Laying in bed, appears stated age, no acute distress, calm, cooperative, pleasantly demented HEENT: EOMI, PERRLA, neck is supple with no thyromegaly or lymphadenopathy RESPIRATORY: Lungs are clear to auscultation bilaterally with no adventitious breath sounds appreciated CARDIOVASCULAR: no JVD, RRR, no murmurs/rubs/gallops ABDOMEN: Soft, nontender to palpation in all four quadrants, no masses/organomegaly EXTREMITIES: Cast on the right lower extremity with exposed toes normal in color and patient is able to move them, she does somewhat wince in pain when ankle is pressed NEUROLOGICAL: No obvious focal deficits, unable to do full exam secondary to dementia. PSYCHIATRIC: Not oriented to person, place or time. Does not answer questions appropriately Skin: No rashes or ulcers. LN: No significant cervical or inguinal lymphadenopathy LABORATORY DATA: See below. ANKLE XR (05/12/19): There is an acute distal fibular fracture with soft tissue swelling. There are chronic changes seen involving the angle which are unchanged from 05/03/2018. There is lateral soft tissue swelling. ASSESSMENT: This is a 58 YO F with history of early-onset dementia who presents after unwitnessed fall at home, likely mechanical, found to have distal fibular fracture. She has been seen by orthopaedic surgery in ED who has placed a cast. She is admitted for her family to pursue placement options as home disposition unsafe at this time. PLAN: 1. Fibular fracture: Patient has had cast placed in ED. Morphine for pain management, although she has not requested any. She has been getting Tylenol and Flexeril. -Continue PT/OT. Recommend continued rehab after d/c -Patient will be made ALC status. 2. Advanced dementia: Social service consult in place, family is actively seeking placement. Fall precautions 3. Interstitial cystitis: Continue home medication 4. Hypertension: Pain vs. untreated HTN. Patient looks comfortable, does not appear to be in discomfort although hard to ascertain given mental status. c/w Pain control. Start on Norvasc 5. DISPOSITION: pending placement opener tender and social workers, on board. Possible admission to [facility] on Tuesday or Tuesday. VS, I&O, 24H, Fishbone Vital Signs/I&O Vital Signs Date Time Temp Pulse Resp B/P (MAP) Pulse Ox O2 Delivery O2 Flow Rate FiO2 05/18/19 06:30 98.2 154/80 (104) 05/17/19 20:00 80 20 97 Room Air I&O- Last 24 Hours up to 6 AM 05/18/19 06:00 Intake Total 1020 ml Balance 1020 ml GME ATTESTATION GME ATTESTATION My faculty preceptor for this patient encounter was physically present during the encounter and was fully available. All aspects of the patient interview, examination, medical decision making process, and medical care plan development were reviewed and approved by the faculty preceptor. The faculty preceptor is aware and concurs with the plan as stated in the body of this note and will attest to such by his/her cosignature. ATTENDING NOTE I have personally evaluated and examined the patient. Discussed with resident/student regarding plan of care and agree with the above assessment and plan. CONCEPCION CHICAS MD May 18, 2019 10:32 SERGEY HAIR MD May 18, 2019 10:39
[2019-05-18] MEDS: amLODIPine 5 MG TAB PO SCH (12:26)
[2019-05-18 14:28] VITALS: BP 144/85
[2019-05-18] MEDS: ACETAMINOPHEN TAB 650MG DOSE (2X325MG) PO PRN ×2 (15:13→21:58)
[2019-05-18] MEDS: CYCLOBENZAPRINE 10 MG TAB PO SCH (20:25)
[2019-05-19] MEDS: ACETAMINOPHEN TAB 650MG DOSE (2X325MG) PO PRN ×2 (05:03→18:49)
[2019-05-19 06:00] VITALS: BP 145/66
[2019-05-19] MEDS: CitaloPRAM (CeleXA) 10 MG TABLET PO SCH (08:37)
[2019-05-19] MEDS: PENTOSAN POLYSULFATE SODIUM 100 MG CAP (ELMIRON) PO SCH ×3 (08:37→20:55)
[2019-05-19] MEDS: VITAMIN D 1,000 INTERNATIONAL UNITS TABLET PO SCH (08:37)
[2019-05-19] MEDS: amLODIPine 5 MG TAB PO SCH (08:37)
[2019-05-19] MEDS: HEPARIN SOD (PORCINE) 5000 UNITS/ML VIAL SC SCH ×2 (08:38→20:55)
[2019-05-19] MEDS ORDERED: HEPARIN SOD (PORCINE) 5000 UNITS/ML VIAL SQ SCH (18:30)
[2019-05-19] MEDS: CYCLOBENZAPRINE 10 MG TAB PO SCH (20:55)
[2019-05-20] MEDS: ACETAMINOPHEN TAB 650MG DOSE (2X325MG) PO PRN ×2 (05:22→15:24)
[2019-05-20 06:00] VITALS: BP 138/68
[2019-05-20] MEDS: CitaloPRAM (CeleXA) 10 MG TABLET PO SCH (08:43)
[2019-05-20] MEDS: PENTOSAN POLYSULFATE SODIUM 100 MG CAP (ELMIRON) PO SCH ×3 (08:43→21:33)
[2019-05-20] MEDS: amLODIPine 5 MG TAB PO SCH (08:43)
[2019-05-20] MEDS: VITAMIN D 1,000 INTERNATIONAL UNITS TABLET PO SCH (08:43)
[2019-05-20] MEDS: HEPARIN SOD (PORCINE) 5000 UNITS/ML VIAL SC SCH ×2 (08:44→21:33)
[2019-05-20] MEDS ORDERED: MAG SULF 1GM/100ML (MAG RUN) 1 GM in IV 1 EA IV ONE (18:30)
[2019-05-20] MEDS ORDERED: MAGNESIUM OXIDE 400 MG TAB (MAG-OX) PO ONE (19:00)
[2019-05-20] MEDS ORDERED: MAGNESIUM OXIDE 400 MG TAB (MAG-OX) PO SCH (21:00)
[2019-05-20] MEDS: CYCLOBENZAPRINE 10 MG TAB PO SCH (21:33)
[2019-05-21 06:00] VITALS: BP 141/72
[2019-05-21 06:30] LABS: HEMOGLOBIN 12.9 g/dl (12.0-15.5); MEAN CORPUSCULAR HEMOGLOBIN 30.9 pg (27.0-33.0); MEAN CORPUSCULAR HGB CONC 32.3 g/dl (32.0-36.5); MEAN CORPUSCULAR VOLUME 95.9 fl (80.0-96.0); PLATELET COUNT, AUTOMATED 289 10^3/uL (150-450); RED BLOOD COUNT 4.17 10^6/uL (4.00-5.40); WHITE BLOOD COUNT 7.2 10^3/uL (4.0-10.0)
[2019-05-21 07:03] LABS: BLOOD UREA NITROGEN 11 MG/DL (7-18); CALCIUM LEVEL 8.6 MG/DL (8.8-10.2); CARBON DIOXIDE LEVEL 27 MEQ/L (21-32); CHLORIDE LEVEL 106 MEQ/L (98-107); CREATININE FOR GFR 0.59 MG/DL (0.55-1.30); GLOMERULAR FILTRATION RATE > 60.0 (>45); GLUCOSE, FASTING 98 MG/DL (70-100); MAGNESIUM LEVEL 2.1 MG/DL (1.8-2.4); POTASSIUM SERUM 3.7 MEQ/L (3.5-5.1); SODIUM LEVEL 139 MEQ/L (136-145)
[2019-05-21] MEDS: HEPARIN SOD (PORCINE) 5000 UNITS/ML VIAL SC SCH ×2 (08:59→20:00)
[2019-05-21] MEDS: VITAMIN D 1,000 INTERNATIONAL UNITS TABLET PO SCH (09:00)
[2019-05-21] MEDS: CitaloPRAM (CeleXA) 10 MG TABLET PO SCH (09:00)
[2019-05-21] MEDS: MAGNESIUM OXIDE 400 MG TAB (MAG-OX) PO SCH ×2 (09:00→19:59)
[2019-05-21] MEDS: amLODIPine 5 MG TAB PO SCH (09:00)
[2019-05-21] MEDS: PENTOSAN POLYSULFATE SODIUM 100 MG CAP (ELMIRON) PO SCH ×3 (09:00→20:00)
[2019-05-21] MEDS: CYCLOBENZAPRINE 10 MG TAB PO SCH (20:00)
[2019-05-22 06:29] VITALS: BP 148/77
[2019-05-22 09:09] VITALS: BP 148/77
[2019-05-22] MEDS: amLODIPine 5 MG TAB PO SCH (09:09)
[2019-05-22] MEDS: PENTOSAN POLYSULFATE SODIUM 100 MG CAP (ELMIRON) PO SCH (09:09)
[2019-05-22] MEDS: HEPARIN SOD (PORCINE) 5000 UNITS/ML VIAL SC SCH (09:10)
[2019-05-22] MEDS: CitaloPRAM (CeleXA) 10 MG TABLET PO SCH (09:10)
[2019-05-22] MEDS: VITAMIN D 1,000 INTERNATIONAL UNITS TABLET PO SCH (09:10)
[2019-05-22] MEDS: MAGNESIUM OXIDE 400 MG TAB (MAG-OX) PO SCH (09:10)
--- NOTE | 2019-05-22 14:50 | DS.PDOC ---
Discharge Summary General Date of Admission May 12, 2019 at 11:50 Date of Discharge May 22, 2019 Primary Care Physician: Romel Ray M.D. Attending Physician: STEPHANIE ZAMORA MD Specialist/Consultants Involve: KHOA PADGETT MD Discharge Summary PROCEDURES PERFORMED DURING STAY: [None]. ADMITTING DIAGNOSES: 1. Fall DISCHARGE DIAGNOSES: 1. R fibular fracture COMPLICATIONS/CHIEF COMPLAINT: Dysuria. HISTORY OF PRESENT ILLNESS: This is a 58-year-old female with history of early onset dementia and behavioral disturbance who presents after unwitnessed fall at home. History is obtained from ED staff and medical record, as patient does not answer questions appropriately secondary to her dementia. Reportedly, she was found by her significant other after an unknown time of being down. She had urinated on herself, but the patient is known to be incontinent of urine due to her interstitial cystitis. The patient has not been ill recently, and not had sick contacts. She has not complained of any fevers, chills or weight loss recently. She does have chronic dysuria for which she sees urology. Otherwise the patient has no other acute medical issues. In the ED, she underwent ankle x- ray was found to have a fracture of her distal fibula. She was seen by orthopedic surgery who placed a cast on her right lower extremity. Reportedly, her significant other is seeking placement for higher level of care for the patient. She is admitted for coordination of placement at this time. HOSPITAL COURSE: Patient was admitted to the hospital after unwitnessed fall at home, found to have right fibular fracture. She was casted in the emergency room as orthopedic surgery was consulted and surgical procedure was not indicated. The patient's pain was treated with morphine and tramadol. She was otherwise medically stable. She was discharged to [facility] in stable state. DISCHARGE MEDICATIONS: Please see below. ALLERGIES: Please see below. PHYSICAL EXAMINATION ON DISCHARGE: VITAL SIGNS: Please see below. GENERAL APPEARANCE: Laying in bed, appears stated age, no acute distress, calm, cooperative, pleasantly demented HEENT: EOMI, PERRLA, neck is supple with no thyromegaly or lymphadenopathy RESPIRATORY: Lungs are clear to auscultation bilaterally with no adventitious breath sounds appreciated CARDIOVASCULAR: no JVD, RRR, no murmurs/rubs/gallops ABDOMEN: Soft, nontender to palpation in all four quadrants, no masses/organomegaly EXTREMITIES: Cast on the right lower extremity with exposed toes normal in color and patient is able to move them, she does somewhat wince in pain when ankle is pressed NEUROLOGICAL: No obvious focal deficits, unable to do full exam secondary to dementia. PSYCHIATRIC: Not oriented to person, place or time. Does not answer questions appropriately Skin: No rashes or ulcers. LN: No significant cervical or inguinal lymphadenopathy LABORATORY DATA: Please see below. IMAGING: ANKLE XR (05/12/19): There is an acute distal fibular fracture with soft tissue swelling. There are chronic changes seen involving the angle which are unchanged from 05/03/2018. There is lateral soft tissue swelling. PROGNOSIS: Fair ACTIVITY: [As tolerated]. DIET: As tolerated DISCHARGE PLAN: [facility] DISPOSITION: [facility]. DISCHARGE INSTRUCTIONS: 1. follow-up with PCP and orthopedic surgery as needed ITEMS TO FOLLOWUP ON ON OUTPATIENT: 1. none DISCHARGE CONDITION: [Stable]. TIME SPENT ON DISCHARGE: Greater than 30 minutes. Vital Signs/I&Os Vital Signs Date Time Temp Pulse Resp B/P (MAP) Pulse Ox O2 Delivery O2 Flow Rate FiO2 05/22/19 09:09 81 148/77 05/22/19 06:29 97.9 20 96 Room Air I&O- Last 24 Hours up to 6 AM 05/22/19 06:00 Intake Total 1350 ml Balance 1350 ml Discharge Medications Scheduled Citalopram Hydrobromide (Citalopram HBr) 10 Mg Tablet, 10 MG PO DAILY, (Reported) Cyanocobalamin (Vitamin B-12) (Vitamin B-12) 1,000 Mcg Tablet, 1,000 MCG PO DAILY, (Reported) Cyclobenzaprine HCl (Cyclobenzaprine HCl) 10 Mg Tablet, 10 MG PO QHS, (Reported) Magnesium Oxide (Magnesium) 250 Mg Tablet, 250 MG PO BID, (Reported) Pentosan Polysulfate Sodium (Elmiron) 100 Mg Capsule, 100 MG PO TID, (Reported) Sulfamethoxazole/Trimethoprim (Sulfamethoxazole-Tmp Ds Tablet) 1 Each Tablet, 1 TAB PO BID, (Reported) Allergies Coded Allergies: No Known Allergies (Unverified , 07/20/14) GME ATTESTATION GME ATTESTATION My faculty preceptor for this patient encounter was physically present during the encounter and was fully available. All aspects of the patient interview, examination, medical decision making process, and medical care plan development were reviewed and approved by the faculty preceptor. The faculty preceptor is aware and concurs with the plan as stated in the body of this note and will attest to such by his/her cosignature. ATTENDING NOTE I, Stephanie Zamora, have independently examined this patient and performed my own physical exam, as well as reviewed the documentation and edited where necessary. I have discussed in detail with the resident / student the findings and plan of treatment as documented by the resident / student and edited their note. I agree with their findings and treatment plan and have edited their documentation. I will continue to follow the patient during this hospital stay. Time spend on discharge 36 minutes CONCEPCION CHICAS MD May 22, 2019 14:50 STEPHANIE ZAMORA MD May 22, 2019 15:16
== END 2019-05-22 11:49 | DRG 342 ==
LOC: M ED 09:16 → EDBD 09:16 → M ED INP 11:50 → M MS5PR 13:15
PROVIDERS: ADMIT Internal Medicine; ATTEND Internal Medicine
DX: S82.832A Other fracture of upper and lower end of left fibula, initial encounter for closed fracture (principal); F03.91 Unspecified dementia, unspecified severity, with behavioral disturbance; N30.10 Interstitial cystitis (chronic) without hematuria; W18.30XA Fall on same level, unspecified, initial encounter; Y92.009 Unspecified place in unspecified non-institutional (private) residence as the place of occurrence of the external cause; Z79.899 Other long term (current) drug therapy; I10 Essential (primary) hypertension; M54.5 Low back pain; E55.9 Vitamin D deficiency, unspecified; Z87.891 Personal history of nicotine dependence

== ENCOUNTER → 2019-07-13 | Outpatient (REF) | payer OTHER, MEDICAID ==
[~2019-07-13] MED LIST changes: +CITA10TA6 PO; +CYAN100050 PO; +CYCL10TA PO; +MAGN250T7 PO; +PENT10CA PO; +QUET1TAB7 PO; +SULF1TAB93 PO
[2019-07-13 14:11] LABS: HEMATOCRIT 47.1 % (36.0-47.0); MEAN CORPUSCULAR HEMOGLOBIN 30.2 pg (27.0-33.0); MEAN CORPUSCULAR HGB CONC 31.8 g/dl (32.0-36.5); PLATELET COUNT, AUTOMATED 267 10^3/uL (150-450); RED BLOOD COUNT 4.96 10^6/uL (4.00-5.40); WHITE BLOOD COUNT 7.4 10^3/uL (4.0-10.0)
[2019-07-13 14:46] LABS: ALBUMIN 3.6 GM/DL (3.2-5.2); ALT/SGPT 96 U/L (12-78); BILIRUBIN,TOTAL 0.4 MG/DL (0.2-1.0); BLOOD UREA NITROGEN 14 MG/DL (7-18); CALCIUM LEVEL 9.2 MG/DL (8.8-10.2); CARBON DIOXIDE LEVEL 30 MEQ/L (21-32); CHLORIDE LEVEL 108 MEQ/L (98-107); CREATININE FOR GFR 0.76 MG/DL (0.55-1.30); GLOMERULAR FILTRATION RATE > 60.0 (>45); GLUCOSE, FASTING 90 MG/DL (70-100); POTASSIUM SERUM 4.3 MEQ/L (3.5-5.1); SODIUM LEVEL 142 MEQ/L (136-145); TOTAL 25(OH) VITAMIN D 29.1 NG/ML (30.0-100.0); TOTAL PROTEIN 7.3 GM/DL (6.4-8.2)
== END ==
LOC: SKLAB7 11:34
PROVIDERS: ATTEND Family Medicine
DX: F03.90 Unspecified dementia, unspecified severity, without behavioral disturbance, psychotic disturbance, mood disturbance, and anxiety (principal)

== ENCOUNTER → 2019-07-14 | Outpatient (REF) | payer OTHER, MEDICAID ==
--- NOTE | 2019-07-14 15:01 | ECGEPIP ---
[facility] Test Date: 2019-07-14 Pat Name: RAYO YUAN Department: Room: - Gender: Female Mold Filler: : 1960 Requested By: Romel Ray Order Number: [id number] Reading MD: Michele Perez Measurements Intervals Sanders Rate: 84 P: 53 OH: 146 QRS: -12 QRSD: 104 T: 33 QT: 394 QTc: 466 Interpretive Statements SINUS RHYTHM VOLTAGE CRITERIA FOR LVH NONSPECIFIC T-WAVE ABNORMALITY no change from 05/12/19 Electronically Signed on 07-14-2019 15:01:28 EST by Michele Perez
== END ==
LOC: SKLAB7 10:32
PROVIDERS: ATTEND Family Medicine
DX: F03.90 Unspecified dementia, unspecified severity, without behavioral disturbance, psychotic disturbance, mood disturbance, and anxiety (principal)

== ENCOUNTER → 2019-07-16 | Outpatient (REF) | payer OTHER, MEDICAID | LOC: SKLAB7 07:01 | PROVIDERS: ATTEND Family Medicine | DX: R94.6 Abnormal results of thyroid function studies (principal) ==

== ENCOUNTER → 2019-07-30 | Outpatient (REF) | payer OTHER, MEDICAID ==
[2019-07-30 08:26] LABS: ALBUMIN 2.8 GM/DL (3.2-5.2); BILIRUBIN,DIRECT 0.1 MG/DL (0.0-0.2); BILIRUBIN,TOTAL 0.6 MG/DL (0.2-1.0); FREE T4 0.82 NG/DL (0.76-1.46); TOTAL PROTEIN 5.8 GM/DL (6.4-8.2)
== END ==
LOC: SKLAB7 10:06
PROVIDERS: ATTEND Family Medicine
DX: R94.6 Abnormal results of thyroid function studies (principal)

== ENCOUNTER → 2019-10-04 | Outpatient (REF) ==
[~2019-10-04] MED LIST changes: +CYCL-707 PO; -CYCL10TA PO
== END ==
LOC: SKLAB7 08:46
PROVIDERS: ATTEND Internal Medicine
DX: Z11.59 Encounter for screening for other viral diseases (principal); Z53.9 Procedure and treatment not carried out, unspecified reason

== ENCOUNTER → 2019-10-17 | Outpatient (REF) | payer OTHER, MEDICAID ==
[2019-10-17 14:43] LABS: HEMATOCRIT 45.1 % (36.0-47.0); HEMOGLOBIN 14.4 g/dl (12.0-15.5); MEAN CORPUSCULAR HGB CONC 31.9 g/dl (32.0-36.5); MEAN CORPUSCULAR VOLUME 90.9 fl (80.0-96.0); PLATELET COUNT, AUTOMATED 263 10^3/uL (150-450); RED BLOOD COUNT 4.96 10^6/uL (4.00-5.40); WHITE BLOOD COUNT 9.4 10^3/uL (4.0-10.0)
[2019-10-17 15:03] LABS: BLOOD UREA NITROGEN 13 MG/DL (7-18); CALCIUM LEVEL 9.1 MG/DL (8.8-10.2); CARBON DIOXIDE LEVEL 29 MEQ/L (21-32); CHLORIDE LEVEL 107 MEQ/L (98-107); CREATININE FOR GFR 0.61 MG/DL (0.55-1.30); GLOMERULAR FILTRATION RATE > 60.0 (>45); GLUCOSE, FASTING 94 MG/DL (70-100); POTASSIUM SERUM 4.6 MEQ/L (3.5-5.1); SODIUM LEVEL 141 MEQ/L (136-145)
== END ==
LOC: SKLAB7 13:44
PROVIDERS: ATTEND Family Medicine
DX: F03.91 Unspecified dementia, unspecified severity, with behavioral disturbance (principal); R63.4 Abnormal weight loss

== ENCOUNTER → 2019-10-23 | Outpatient (REF) | payer OTHER, MEDICAID ==
[2019-10-23 12:43] LABS: BASO # 0.1 10^3/uL (0.0-0.2); BASO % 0.5 % (0.0-1.0); EOS # 0.3 10^3/uL (0.0-0.5); EOS % 3.4 % (0.0-3.0); HEMATOCRIT 44.7 % (36.0-47.0); HEMOGLOBIN 14.4 g/dl (12.0-15.5); LYMPH % 20.4 % (24.0-44.0); MEAN CORPUSCULAR HEMOGLOBIN 29.5 pg (27.0-33.0); MEAN CORPUSCULAR HGB CONC 32.2 g/dl (32.0-36.5); MEAN CORPUSCULAR VOLUME 91.6 fl (80.0-96.0); MONO # 0.5 10^3/uL (0.0-0.8); MONO % 5.6 % (0.0-5.0); NEUTROPHILS # 6.7 10^3/uL (1.5-8.5); NEUTROPHILS % 69.6 % (36.0-66.0); PLATELET COUNT, AUTOMATED 279 10^3/uL (150-450); RED BLOOD COUNT 4.88 10^6/uL (4.00-5.40); WHITE BLOOD COUNT 9.7 10^3/uL (4.0-10.0)
[2019-10-23 13:04] LABS: ALBUMIN 2.7 GM/DL (3.2-5.2); ALT/SGPT 32 U/L (12-78); BILIRUBIN,TOTAL 0.6 MG/DL (0.2-1.0); BLOOD UREA NITROGEN 15 MG/DL (7-18); CALCIUM LEVEL 8.7 MG/DL (8.8-10.2); CARBON DIOXIDE LEVEL 32 MEQ/L (21-32); CHLORIDE LEVEL 106 MEQ/L (98-107); CREATININE FOR GFR 0.54 MG/DL (0.55-1.30); GLOMERULAR FILTRATION RATE > 60.0 (>45); GLUCOSE, FASTING 104 MG/DL (70-100); POTASSIUM SERUM 3.3 MEQ/L (3.5-5.1); SODIUM LEVEL 142 MEQ/L (136-145); TOTAL PROTEIN 6.2 GM/DL (6.4-8.2)
== END ==
LOC: SKLAB7 10:49
PROVIDERS: ATTEND Family Medicine
DX: F03.91 Unspecified dementia, unspecified severity, with behavioral disturbance (principal)